=== PATIENT | male | born 1995 | race Hispanic/Latino ===

== ENCOUNTER 2020-12-23 22:22 | Emergency (ER) | payer OTHER ==
[~2020-12-23] VITALS: Ht 170.2 cm; Wt 59.0 kg
== END 2020-12-24 00:26 | disposition home or self-care (01) ==
LOC: ED 22:22
DX: Z04.1 Encounter for examination and observation following transport accident (principal); Z87.891 Personal history of nicotine dependence
CPT/HCPCS: 99282

== ENCOUNTER 2022-12-19 20:48 | Emergency (ER) | payer OTHER ==
[~2022-12-19] VITALS: Ht 167.6 cm; Wt 58.0 kg
[~2022-12-19 20:48] MED LIST: CYCLOBENZAPRINE10 MG PO; ONDANSETRON ODT8 MG PO
[2022-12-19] MEDS ORDERED: AMOX TR-K CLV1 EAC1 PO (22:46)
[2022-12-19 23:04] VITALS: BP 118/76
== END 2022-12-19 23:04 | disposition home or self-care (01) ==
LOC: ED 20:48
DX: S61.212A Laceration without foreign body of right middle finger without damage to nail, initial encounter (principal); W26.8XXA Contact with other sharp object(s), not elsewhere classified, initial encounter; Z87.891 Personal history of nicotine dependence
CPT/HCPCS: 12002; 73130; 90471; 90715; 99283-25

== ENCOUNTER 2022-12-22 13:20 | Emergency (ER) | payer OTHER ==
[~2022-12-22] VITALS: Ht 167.6 cm; Wt 57.6 kg
[~2022-12-22 13:20] MED LIST changes: +AMOX TR-K CLV1 EAC1 PO
--- OUTSIDE RECORDS SUMMARY | 2022-12-22 13:24 | XMS ---
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 Deedee VISIT COUNT (12 MO.) 3 [facility] TOTAL 3 NOTE: Visits indicate total known visits. ED/UCC VISIT TRACKING (12 MO.) 12/22/2022 13:21 [facility] TYPE: Emergency COMPLAINT: - WOUND CHECK 12/19/2022 20:48 [facility] TYPE: Emergency COMPLAINT: - RT HAND LACERATIONS DIAGNOSES: - Contact with other sharp object(s), not elsewhere classified, initial encounter - Laceration without foreign body of right hand, initial encounter - Laceration without foreign body of right middle finger without damage to nail, initial encounter - Personal history of nicotine dependence 11/14/2022 14:46 [facility] TYPE: Emergency COMPLAINT: - HEAD INJURY DIAGNOSES: - Concussion without loss of consciousness, initial encounter - Headache, unspecified - Personal history of nicotine dependence - Striking against or struck by other objects, initial encounter INPATIENT VISIT TRACKING (12 MO.) No inpatient visits to display in this time frame [email or web address]
[2022-12-22 14:47] VITALS: BP 105/69
[2022-12-26] MEDS ORDERED: AMOX TR-K CLV1 EAC1 PO (11:54)
== END 2022-12-22 14:48 | disposition home or self-care (01) ==
LOC: ED 13:20
DX: S61.411D Laceration without foreign body of right hand, subsequent encounter (principal); W25.XXXD Contact with sharp glass, subsequent encounter; Z87.891 Personal history of nicotine dependence
CPT/HCPCS: 99282

== ENCOUNTER 2024-06-05 21:00 | Emergency (ER) | payer BC ==
[~2024-06-05] VITALS: Ht 167.6 cm; Wt 60.0 kg
[2024-06-05 21:22] LABS: BILIRUBIN, URINE NEGATIVE (negative); BLOOD/HGB, URINE NEGATIVE (Negative); KETONE, URINE NEGATIVE (Negative); LEUK ESTERASE, URINE NEGATIVE (negative); NITRITE, URINE NEGATIVE (negative); PH, URINE 6.5 (5-7)
[2024-06-05] MEDS ORDERED: KETOROLAC TROMETHAMINE 30 MG/ML VIAL IV ONE (21:45)
[2024-06-05] MEDS ORDERED: FAMOTIDINE 20 MG/ 2 ML VIAL IV ONE (21:45)
[2024-06-05] MEDS ORDERED: ondansetron HCL 4 MG/2 ML VIAL IV ONE (21:45)
[2024-06-05 21:56] LABS: BASOPHILS 1.1 % (0-2); EOSINOPHILS 2.7 % (0-6); HEMATOCRIT 42.7 % (35.0-50.0); HEMOGLOBIN 14.7 g/dL (12.0-18.0); LYMPHOCYTES 43.8 % (24-44); MCHC 34.5 g/dl (30-36); MCV 98.5 fl (81-99); MONOCYTES 8.2 % (0-12); NEUTROPHILS 44.2 % (39-80); PLATELET COUNT 265 K/uL (140-440); RBC 4.34 M/ul (4.3-5.7)
[2024-06-05 22:10] LABS: ALBUMIN 4.2 g/dL (3.4-5.0); ALBUMIN/GLOBULIN RATIO 1.4 (1.1-2.4); ANION GAP 11.9 (7-21); BILIRUBIN, TOTAL 0.5 ng/dL (0.2-1.0); BUN/CREATININE RATIO 14.14 (6.0-28.6); CREATININE, SERUM 0.99 mg/dL (0.70-1.30); POTASSIUM 3.9 mmol/L (3.5-5.1); PROTEIN, TOTAL 7.2 g/dL (6.4-8.2)
[2024-06-05 22:51] LABS: N. GONORRRHOEAE BY PCR NOT DETECTED (NOT DETECT)
[2024-06-05 23:01] VITALS: BP 116/70
== END 2024-06-05 23:02 | disposition home or self-care (01) ==
LOC: ED 21:00
PROVIDERS: Internal Medicine
DX: R10.31 Right lower quadrant pain (principal); R10.2 Pelvic and perineal pain; Z87.891 Personal history of nicotine dependence
CPT/HCPCS: 36415; 74177; 80053; 81003; 85025; J1885; J2405; Q9967

== ENCOUNTER 2024-10-15 13:38 | Emergency (ER) | payer BC ==
[~2024-10-15] VITALS: Ht 167.6 cm; Wt 60.4 kg
[2024-10-15 15:20] VITALS: BP 115/57
== END 2024-10-15 15:20 | disposition home or self-care (01) ==
LOC: ED 13:38
DX: S63.635A Sprain of interphalangeal joint of left ring finger, initial encounter (principal); W23.0XXA Caught, crushed, jammed, or pinched between moving objects, initial encounter; Z87.891 Personal history of nicotine dependence
CPT/HCPCS: 73130; 99283

== ENCOUNTER 2024-10-26 19:40 | Emergency (ER) | payer BC ==
[~2024-10-26] VITALS: Ht 167.6 cm; Wt 97.4 kg
--- OUTSIDE RECORDS SUMMARY | 2024-10-26 19:46 | XMS ---
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 - 2 Visits in 30 Days CARE PROVIDERS -, Gina- Dentist: Flex O Writer Operator [facility] PHONE: [phone] Chaim Lugo PA-C Physician Tar Heater Operator Current PHONE: Unknown Sunny has no Care Guidelines for this patient. Deedee VISIT COUNT (12 MO.) [address] [place] [address] TOTAL 3 NOTE: Visits indicate total known visits. ED/C VISIT TRACKING (12 MO.) 10/26/2024 19:[address] [facility] [place] TYPE: Emergency COMPLAINT: - FALL/HIT HEAD 10/15/2024 13:38 [facility] TYPE: Emergency COMPLAINT: - LT FINGER INJURY DIAGNOSES: - Caught, crushed, jammed, or pinched between moving objects, initial encounter - Pain in left finger(s) - Personal history of nicotine dependence - Sprain of interphalangeal joint of left ring finger, initial encounter 06/05/2024 21:[address] [facility] [place] TYPE: Emergency COMPLAINT: - ABDOMINAL PAIN DIAGNOSES: - Pelvic and perineal pain - Personal history of nicotine dependence - Right lower quadrant pain INPATIENT VISIT TRACKING (12 MO.) No inpatient visits to display in this time frame [id number]
[2024-10-26] MEDS ORDERED: LACTATED RINGER'S 1,000 ML IV ONE ×2 (20:45)
[2024-10-26] MEDS ORDERED: ondansetron HCL 4 MG/2 ML VIAL IV ONE (20:45)
[2024-10-26] MEDS ORDERED: MORPHINE SULFATE 4 MG/ML VIAL IV ONE (20:45)
[2024-10-26] MEDS ORDERED: LACTATED RINGER'S 1,000 ML IV SCH (20:45)
[2024-10-26 21:23] LABS: BASOPHILS 0.7 % (0-2); EOSINOPHILS 0.4 % (0-6); HEMATOCRIT 44.5 % (35.0-50.0); HEMOGLOBIN 15.3 g/dL (12.0-18.0); MCH 33.6 (27-36); MCHC 34.5 g/dl (30-36); MCV 97.4 fl (81-99); MONOCYTES 5.2 % (0-12); NEUTROPHILS 77.7 % (39-80); PLATELET COUNT 237 K/uL (140-440); RBC 4.57 M/ul (4.3-5.7); RDW 13.3 (10.5-15.0)
[2024-10-26 21:38] LABS: ALBUMIN/GLOBULIN RATIO 1.67 (1.1-2.4); ALCOHOL, MEDICAL <3 ng/dL (<3); ALKALINE PHOSPHATASE 76 U/L (46-116); ALT (SGPT) 21 U/L (14-59); ANION GAP 14.8 (7-21); AST (SGOT) 20 U/L (15-37); BILIRUBIN, TOTAL 0.7 mg/dL (0.2-1.0); CALCIUM 9.4 mg/dL (8.5-10.1); CARBON DIOXIDE 27 mmol/L (21-32); CHLORIDE 102 mmol/L (98-107); CREATININE, SERUM 0.95 mg/dL (0.70-1.30); GLOMERULAR FILTRATION RATE,EST 112 mL/min (>60); POTASSIUM 3.8 mmol/L (3.5-5.1); UREA NITROGEN 21 mg/dL (7-18)
[2024-10-26 21:57] LABS: ABO O; ANTIBODY SCREEN NEGATIVE; RH POSITIVE
[2024-10-26 22:27] LABS: AMPHETAMINES, URINE NEGATIVE (NEGATIVE); BARBITURATES, URINE NEGATIVE (NEGATIVE); BENZODIAZEPINE, URINE NEGATIVE (NEGATIVE); BUPRENORPHINE, URINE NEGATIVE (NEGATIVE); CANNABINOID, URINE POSITIVE (NEGATIVE); COCAINE, URINE NEGATIVE (NEGATIVE); ECSTASY, URINE NEGATIVE (NEGATIVE); FENTANYL, URINE NEGATIVE (NEGATIVE); METHADONE, URINE NEGATIVE (NEGATIVE); OPIATES, URINE NEGATIVE (NEGATIVE); OXYCODONE, URINE NEGATIVE (NEGATIVE); PHENCYCLIDINE, URINE NEGATIVE (NEGATIVE)
[2024-10-26] MEDS ORDERED: CYCLOBENZAPRINE HCL 10 MG HOME.PACK PO ONE (23:00)
[2024-10-26 23:30] VITALS: BP 113/61
== END 2024-10-26 23:30 | disposition home or self-care (01) ==
LOC: ED 19:40 → EDSEX 19:40 → ED 23:30
PROVIDERS: Family Medicine
DX: S16.1XXA Strain of muscle, fascia and tendon at neck level, initial encounter (principal); S00.03XA Contusion of scalp, initial encounter; S80.211A Abrasion, right knee, initial encounter; S70.211A Abrasion, right hip, initial encounter; V18.4XXA Pedal cycle driver injured in noncollision transport accident in traffic accident, initial encounter; Z87.891 Personal history of nicotine dependence
CPT/HCPCS: 36415; 70450; 70486; 72125; 73560; 80053; 80307; 85025; 86850; 86900; 86901; 96374; 96375; 99284-25; G0480; J2270; J2405; J7121